=== PATIENT | male | born 1985 | race Caucasian/White ===

== ENCOUNTER 2017-02-03 15:18 | Inpatient (IN) | payer OTHER ==
[~2017-02-03] VITALS: Ht 180.3 cm; Wt 86.4 kg
[~2017-02-03 15:18] MED LIST: ADDERALL10 MG PO; ADDERALL20 MG PO; AMOXICILLIN500 MG PO; AMOXIL500 MG PO; FLONASE 0.05% 121 EA NAS; MOTRIN800 MG PO; NAPROSYN500 MG PO; NKHM; PERCOCET 325 MG1 TA2 PO; PERCOCET 325 MG1 TA5 PO; ULTRAM50 MG PO; ZYRTEC10 M1 PO
[2017-02-03 15:25] VITALS: BP 139/94
[2017-02-03 16:03] LABS: HEMATOCRIT 47.8 % (42.0-52.0); HEMOGLOBIN 16.7 g/dl (14.0-18.0); MEAN CELL VOLUME 94.1 fl (80.0-94.0); MEAN CORPUSCULAR HGB 32.9 pg (27.0-31.0); MEAN CORPUSCULAR HGB CONC 34.9 g/dl (33.0-37.0); PLATELET COUNT AUTOMATED 258 10*3/uL (130-400); RED BLOOD COUNT 5.08 10*6/uL (4.50-5.90); RED CELL DISTRI WIDTH 12.3 % (0-14.5); WHITE BLOOD COUNT 14.8 10*3/uL (4.8-10.8)
[2017-02-03 16:17] LABS: ALBUMIN 4.3 gm/dl (3.1-4.5); ALKALINE PHOSPHATASE 57 U/L (45-117); BUN 10 mg/dl (7-24); CHLORIDE 100 mmol/L (98-107); CREATININE 1.11 mg/dL (0.70-1.30); SGOT/AST 13 IU/L (3-35); SGPT/ALT 30 U/L (12-78); SODIUM 137 mmol/L (136-145); TOTAL PROTEIN 8.6 gm/dL (6.4-8.2)
[2017-02-03 16:26] LABS: BASOPHILS 1 % (0-1); PLATELET SUFFICIENCY NORMAL (NORMAL); TOTAL CELLS COUNTED 100 #CELLS
--- NOTE | 2017-02-03 17:07 | NUR ---
DESPITE A LITER OF FLUID INFUSED AND OVER AN HOUR WAIT, PT REMAINS UNABLE TO PROVIDE URINE. BLADDER WILL BE SCANNED SHORTLY, WILL UPDATE
--- NOTE | 2017-02-03 17:16 | NUR ---
BLADDER SCAN REVEALS 43CC URINE. APPROX 10CC OF URINE HAVE BEEN PRODUCED INTO URINE CUP. PROVIDER MADE AWARE, NO NEW ORDERS.
--- NOTE | 2017-02-03 17:26 | NUR ---
PT REPORTS "SIGNIFICANT" IMPROVEMENT IN PAIN SINCE TORADOL INJECTION.
[2017-02-03 19:05] LABS: BILIRUBIN 1+ (NEGATIVE); BLOOD NEGATIVE (NEGATIVE); CLARITY SL CLOUDY (CLEAR); COLOR YELLOW (YELLOW); GLUCOSE NEGATIVE (NEGATIVE); KETONE TRACE (NEGATIVE); NITRITE NEGATIVE (NEGATIVE); SPECIFIC GRAVITY >= 1.030 (1.005-1.030)
[2017-02-03 19:18] LABS: LEUKO ESTERASE NEGATIVE (NEGATIVE)
[2017-02-03 19:21] LABS: RBC 0-2 rbc/hpf (0-2)
[2017-02-03 19:26] VITALS: BP 105/66
[2017-02-03 20:00] VITALS: BP 116/73
[2017-02-03 20:17] VITALS: BP 121/80
--- NOTE | 2017-02-03 20:27 | NUR ---
REPORT FROM INSTALLER TECHNICIANREECE JAMES AT THIS TIME
[2017-02-03 20:45] VITALS: BP 116/73
--- NOTE | 2017-02-03 20:50 | NUR ---
A 32, admitted to , under the services of ZAKI Torres DO with a diagnosis of DIVERTICULITIS. Chief complaint is ABD PAIN. Patient arrived via stretcher from ER. Monitor applied. Initial assessment completed. Vital signs taken and recorded. ZAKI TORRES DO notified of admission to the unit. Orders received. See assessment for past medical history, medications and allergies. Patient and/or family oriented to unit. [facility] visitation policy reviewed. Clothing/patient valuable form completed. MARYANNE AGUILERA
--- NOTE | 2017-02-03 20:52 | NUR ---
PATIENT STATES DOES NOT TAKE ANY HOME MEDICATIONS
--- NOTE | 2017-02-03 22:16 | NUR ---
PATIENT MEDICATED WITH PRN MORPHINE FOR C/O ABD PAIN RATED 7/10 ON A 0/10 PAIN SCALE
--- NOTE | 2017-02-03 23:52 | NUR ---
MORPHINE EFFECTIVE PER PATIENT
--- NOTE | 2017-02-03 23:52 | NUR ---
PATIENT MEDICATED WITH PRN RESTORIL FOR C/O INSOMNIA. WILL MONITOR
[2017-02-04] VITALS: BP 115/72
--- NOTE | 2017-02-04 02:43 | NUR ---
PATIENT RESTING IN BED. NO S/S OF DISTRESS. BED IN LOWEST POSITION, CALL IGHT IN REACH
--- NOTE | 2017-02-04 03:01 | NUR ---
24 HR chart check completed.
[2017-02-04 04:00] VITALS: BP 88/50
--- NOTE | 2017-02-04 05:50 | NUR ---
PATIENT MEDICATED WITH PRN MORPHINE FOR C/O PAIN 7/10 ON 0/10 PAIN SCALE
[2017-02-04 07:30] LABS: HEMATOCRIT 41.8 % (42.0-52.0); MEAN CELL VOLUME 96.1 fl (80.0-94.0); MEAN CORPUSCULAR HGB 33.1 pg (27.0-31.0); MEAN CORPUSCULAR HGB CONC 34.4 g/dl (33.0-37.0); MEAN PLATELET VOLUME 9.6 fl (9.6-12.3); PLATELET COUNT AUTOMATED 227 10*3/uL (130-400); RED BLOOD COUNT 4.35 10*6/uL (4.50-5.90); RED CELL DISTRI WIDTH 12.7 % (0-14.5); WHITE BLOOD COUNT 10.8 10*3/uL (4.8-10.8)
[2017-02-04 07:31] LABS: HEMOGLOBIN 14.4 g/dl (14.0-18.0)
[2017-02-04 07:47] LABS: BUN 12 mg/dl (7-24); CHLORIDE 106 mmol/L (98-107); CHOLESTEROL 207 mg/dL (<200); HDL CHOLESTEROL 61 mg/dl (40-60); LDL CHOLESTEROL 129 mg/dL (9-159); MAGNESIUM 2.1 mg/dL (1.5-2.1); PHOSPHOROUS 2.5 mg/dL (2.5-4.9); POTASSIUM 3.8 mmol/L (3.5-5.1); SODIUM 140 mmol/L (136-145); TRIGLYCERIDES 84 mg/dl (<150); VLDL CHOLESTEROL 17 mg/dL (6-40)
[2017-02-04 07:51] LABS: PLATELET SUFFICIENCY NORMAL (NORMAL); TOTAL CELLS COUNTED 100 #CELLS
[2017-02-04 08:00] VITALS: BP 115/71; BP 88/50
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
[2017-02-04 12:00] VITALS: BP 114/67
--- NOTE | 2017-02-04 12:20 | NUR ---
MEDICATED WITH NORCO FOR CONMPLAINTS OF LEFT SIDED ABDOMINAL PAIN. RATES PAIN A 6 ON A PAIN SCALE OF 1-10.
--- NOTE | 2017-02-04 13:00 | NUR ---
VOICES THAT NORCO WAS EFFECTIVE FOR PAIN
[2017-02-04 16:00] VITALS: BP 119/68
--- NOTE | 2017-02-04 19:45 | NUR ---
NORCO GIVEN FOR COMPLAINTS OF PAIN LT FLANK AROUND TO ABDOMEN. RATES PAIN A 6/10.
[2017-02-04 20:00] VITALS: BP 116/73
--- NOTE | 2017-02-04 22:02 | NUR ---
RESTORIL GIVEN PER PT REQUEST FOR SLEEP.
--- NOTE | 2017-02-04 22:03 | NUR ---
PT STATES NORCO WAS EFFECTIVE FOR PAIN.
--- NOTE | 2017-02-04 22:55 | NUR ---
RESTORIL EFFECTIVE...PT DOZING.
--- NOTE | 2017-02-04 23:00 | NUR ---
ASSUMED CARE OF PT AT THIS TIME, RESPS EASY AND NONLABORED WITH NO S/S OF DISTRESS CALL LIGHT WITH IN REACH
[2017-02-05] VITALS: BP 104/68
--- NOTE | 2017-02-05 04:50 | NUR ---
pt resting in bed with eyes closed resps easy and nonlabored call light with in reach
--- NOTE | 2017-02-05 05:34 | NUR ---
PT REQUESTED PRN MEDICATION FOR PAIN, REPORTS HAVING ABDOMINAL PAIN AND REQUESTED MEDICATION , ADMINISTERED NORCO PO PRN PER ORDERS, WILL MONITOR EFFECTS
[2017-02-05 06:19] LABS: BASO % 0.5 % (0.0-1.0); EOS # 0.2 10*3/uL (0.0-0.4); EOS % 2.6 % (1.0-4.0); HEMATOCRIT 38.8 % (42.0-52.0); HEMOGLOBIN 13.2 g/dl (14.0-18.0); LYMPH # 2.3 10*3/uL (1.3-4.4); LYMPH % 31.8 % (27.0-41.0); MEAN CELL VOLUME 96.5 fl (80.0-94.0); MEAN CORPUSCULAR HGB 32.8 pg (27.0-31.0); MEAN PLATELET VOLUME 9.4 fl (9.6-12.3); MONO # 0.9 10*3/uL (0.1-1.0); MONO % 12.8 % (3.0-9.0); NEUT # 3.8 10*3/uL (2.3-7.9); NEUT % 51.9 % (47.0-73.0); PLATELET COUNT AUTOMATED 206 10*3/uL (130-400); RED BLOOD COUNT 4.02 10*6/uL (4.50-5.90); RED CELL DISTRI WIDTH 12.4 % (0-14.5); WHITE BLOOD COUNT 7.4 10*3/uL (4.8-10.8)
[2017-02-05 06:35] LABS: BUN 7 mg/dl (7-24); CHLORIDE 106 mmol/L (98-107); CREATININE 0.81 mg/dL (0.70-1.30); POTASSIUM 4.1 mmol/L (3.5-5.1); SODIUM 141 mmol/L (136-145)
[2017-02-05 08:00] VITALS: BP 117/72
--- NOTE | 2017-02-05 09:25 | NUR ---
case management visits with patient, patient denies any home needs
[2017-02-05 12:00] VITALS: BP 118/75
[2017-02-05] MEDS ORDERED: CIPRO500 MG PO (12:14)
[2017-02-05] MEDS ORDERED: FLAGYL500 MG PO (12:14)
[2017-02-05] MEDS ORDERED: NORCO 5/325 PO (12:15)
--- NOTE | 2017-02-05 14:00 | NUR ---
Discharge instructions reviewed with patient/family. Patient receptive and verbalizes understanding. Follow-up care arranged. Written instructions given to patient/family. SAURABH ARELLANO
== END 2017-02-05 14:00 | disposition home or self-care (01) | DRG 872 ==
LOC: ED 15:18 → EDHOLD 18:49 → 4E 18:49
PROVIDERS: Hospitalist; Nurse Practitioner Family; Student in an Organized Health Care Education/Training Program; ADMIT Internal Medicine
DX: A41.9 Sepsis, unspecified organism (principal); K57.32 Diverticulitis of large intestine without perforation or abscess without bleeding; R03.0 Elevated blood-pressure reading, without diagnosis of hypertension; J45.20 Mild intermittent asthma, uncomplicated; R80.9 Proteinuria, unspecified; F17.210 Nicotine dependence, cigarettes, uncomplicated; Z82.49 Family history of ischemic heart disease and other diseases of the circulatory system; Z82.5 Family history of asthma and other chronic lower respiratory diseases; Z71.6 Tobacco abuse counseling

== ENCOUNTER → 2020-12-06 | Outpatient (CLI) | payer OTHER ==
[~2020-12-06] MED LIST changes: +CIPRO500 MG PO; +FLAGYL500 MG PO; +NORCO 5/325 PO
[2020-12-06 11:54] LABS: BASO % 0.7 % (0.0-1.0); EOS # 0.1 10*3/uL (0.0-0.4); EOS % 1.2 % (1.0-4.0); HEMATOCRIT 42.9 % (42.0-52.0); LYMPH # 2.2 10*3/uL (1.3-4.4); LYMPH % 38.7 % (27.0-41.0); MEAN CELL VOLUME 91.9 fl (80.0-94.0); MEAN CORPUSCULAR HGB 30.8 pg (27.0-31.0); MEAN CORPUSCULAR HGB CONC 33.6 g/dl (33.0-37.0); MEAN PLATELET VOLUME 8.7 fl (9.6-12.3); MONO # 0.3 10*3/uL (0.1-1.0); NEUT % 53.2 % (47.0-73.0); PLATELET COUNT AUTOMATED 240 10*3/uL (130-400); RED BLOOD COUNT 4.67 10*6/uL (4.50-5.90); RED CELL DISTRI WIDTH 11.9 % (0-14.5); WHITE BLOOD COUNT 5.7 10*3/uL (4.8-10.8)
[2020-12-06 12:29] LABS: ALBUMIN 4.6 gm/dl (3.1-4.5); ALKALINE PHOSPHATASE 50 U/L (45-117); BUN 15 mg/dl (7-24); CHLORIDE 104 mmol/L (98-107); CHOLESTEROL 197 mg/dL (<200); CREATININE 0.91 mg/dL (0.70-1.30); LDL CHOLESTEROL 126 mg/dL (9-159); LIPASE 141 U/L (73-393); SGOT/AST 20 IU/L (3-35); SGPT/ALT 35 U/L (12-78); SODIUM 137 mmol/L (136-145); TOTAL PROTEIN 7.6 gm/dL (6.4-8.2); TRIGLYCERIDES 73 mg/dl (<150)
== END | disposition home or self-care (01) ==
LOC: LAB 11:32
PROVIDERS: ATTEND Nurse Practitioner Family
DX: Z13.228 Encounter for screening for other metabolic disorders (principal); R10.30 Lower abdominal pain, unspecified; Z13.29 Encounter for screening for other suspected endocrine disorder; Z13.220 Encounter for screening for lipoid disorders; Z79.899 Other long term (current) drug therapy

== ENCOUNTER → 2020-12-17 | Outpatient (CLI) | payer OTHER | END | disposition home or self-care (01) | LOC: RAD 12:34 | PROVIDERS: ATTEND Nurse Practitioner Family | DX: M25.512 Pain in left shoulder (principal) ==

== ENCOUNTER → 2021-03-06 | Outpatient (CLI) | payer OTHER | END | disposition home or self-care (01) | LOC: COVID19 15:58 | PROVIDERS: ATTEND Internal Medicine | DX: Z11.52 Encounter for screening for COVID-19 (principal) ==

== ENCOUNTER → 2021-03-28 | Outpatient (CLI) | payer OTHER ==
[2021-03-28 10:53] LABS: RETICULOCYTE % 1.1 % (0.50-2.50)
[2021-03-28 10:55] LABS: BILIRUBIN Negative (Negative); BLOOD Negative (Negative); CLARITY Clear (Clear); COLOR Yellow (Yellow); GLUCOSE Negative (Negative); KETONE Trace (Negative); LEUKO ESTERASE Negative (Negative); NITRITE Negative (Negative); PH 7.5 (4.5-8.0); SPECIFIC GRAVITY >= 1.030 (1.001-1.030)
[2021-03-28 11:08] LABS: HEMATOCRIT 45.7 % (42.0-52.0); MEAN CORPUSCULAR HGB 31.7 pg (27.0-31.0); MEAN CORPUSCULAR HGB CONC 33.7 g/dl (33.0-37.0); PLATELET COUNT AUTOMATED 318 10*3/uL (130-400); RED BLOOD COUNT 4.86 10*6/uL (4.50-5.90); RED CELL DISTRI WIDTH 12.3 % (0-14.5); WHITE BLOOD COUNT 5.6 10*3/uL (4.8-10.8)
[2021-03-28 11:13] LABS: ALBUMIN 4.4 gm/dl (3.1-4.5); BUN 12 mg/dl (7-24); CHLORIDE 105 mmol/L (98-107); CHOLESTEROL 211 mg/dL (<200); CREATININE 0.84 mg/dL (0.70-1.30); IRON 117 ug/dL (65-175); LDL CHOLESTEROL 118 mg/dL (9-159); SGOT/AST 20 IU/L (3-35); SGPT/ALT 45 U/L (12-78); SODIUM 137 mmol/L (136-145); TRIGLYCERIDES 88 mg/dl (<150)
[2021-03-28 11:14] LABS: RBC 0-2 rbc/hpf (0-2); WBC 0-2 wbc/hpf (0-5)
[2021-03-28 11:21] LABS: ALKALINE PHOSPHATASE 51 U/L (45-117); GAMMA GLUTAMYL TRANSPEPTIDASE 42 U/L (15-85); THYROID STIM HORMONE (HS) 0.846 uIU/ml (0.358-4.75); TOTAL IRON BINDING CAPACITY 356 ug/dl (250-450); URIC ACID 4.7 mg/dL (3.5-7.2)
[2021-03-28 11:29] LABS: BASOPHILS 1 % (0-1); PLATELET SUFFICIENCY NORMAL (NORMAL); TOTAL CELLS COUNTED 100 #CELLS
[2021-03-28 11:59] LABS: VITAMIN D, 25-HYDROXY 32.4 ng/mL (30-100)
[2021-03-28 12:00] LABS: FERRITIN 87.2 ng/mL (22.0-322.0)
[2021-03-29 04:06] LABS: TOTAL PROTEIN, SERUM 7.4 g/dL (6.0-8.5)
[2021-03-29 05:06] LABS: RHEUMATOID ARTHRITIS FACTOR <10.0 IU/mL (<14.0)
[2021-03-30 14:07] LABS: ANTI-DSDNA ANTIBODIES <1 IU/mL (0-9)
[2021-03-31 14:07] LABS: A/G RATIO 1.5 (0.7-1.7); ALBUMIN 4.4 g/dL (2.9-4.4); ALPHA-1-GLOBULIN 0.3 g/dL (0.0-0.4); ALPHA-2-GLOBULIN 0.7 g/dL (0.4-1.0); GAMMA GLOBULIN 0.9 g/dL (0.4-1.8); M-SPIKE Not Observed g/dL (Not Observed)
== END | disposition home or self-care (01) ==
LOC: LAB 09:36 → US 10:00
PROVIDERS: ATTEND Family Medicine
DX: M79.605 Pain in left leg (principal); R79.89 Other specified abnormal findings of blood chemistry; R53.83 Other fatigue; E78.5 Hyperlipidemia, unspecified; R74.8 Abnormal levels of other serum enzymes; E55.9 Vitamin D deficiency, unspecified; R06.02 Shortness of breath

== ENCOUNTER → 2021-03-31 | Outpatient (CLI) | payer OTHER | END | disposition home or self-care (01) | LOC: MRI 04:40 | PROVIDERS: ATTEND Family Medicine | DX: R51.9 Headache, unspecified (principal) ==

== ENCOUNTER → 2021-07-16 | Outpatient (CLI) | payer OTHER ==
[2021-07-16 13:13] LABS: FREE T4 1.11 ng/dl (0.76-1.46)
[2021-07-16 13:18] LABS: THYROID STIM HORMONE (HS) 1.31 uIU/ml (0.358-4.75)
== END | disposition home or self-care (01) ==
LOC: LAB 12:37
PROVIDERS: ATTEND Nurse Practitioner
DX: F41.1 Generalized anxiety disorder (principal); F31.2 Bipolar disorder, current episode manic severe with psychotic features; Z79.899 Other long term (current) drug therapy